=== PATIENT | female | born 1980 | race American Indian/Alaskan Native ===

== ENCOUNTER 2021-03-13 17:10 | Emergency (ER) | payer MEDICAID ==
--- NOTE | 2021-03-13 18:24 | Emergency Department Report ---
ED Back Pain/Injury HPI - General Chief Complaint: Back Pain/Injury Stated Complaint: LOWER BACK PAIN Time Seen by Provider: 03/13/21 18:09 Source: patient Limitations: No Limitations - History of Present Illness Initial Comments: Patient is a 40-year-old female presents emergency room with complaints of right lower back pain that began a few days ago. She states movement worsens her pain. She states that she has been having some nausea. She denies any fever, vomiting, diarrhea, urinary frequency, dysuria, dark urine, odor of the urine, numbness, weakness, radiation of the pain, bowel or bladder incontinence. She denies any steroid use, history of cancer, IV drug use. Patient denies any past medical history. She denies any medications allergies. She states that she believes her last menstrual cycle was in January, she states that she is not sure if she is . - Related Data Previous Rx's Medication Instructions Recorded Last Taken Type Menthol/Camphor [Roundup [place] 1 applicatio TP BID #18 g 03/13/21 Unknown Rx Ointment] Naproxen 375 mg PO BID PRN #20 tab 03/13/21 Unknown Rx methOCARBAMOL [Robaxin TAB] 500 mg PO BID PRN #20 tab 03/13/21 Unknown Rx Allergies Allergy/AdvReac Type Severity Reaction Status Date / Time No Known Allergies Allergy Verified 03/13/21 19:55 ED Review of Systems ROS: Stated complaint: LOWER BACK PAIN Other details as noted in HPI Comment: All other systems reviewed and negative ED Past Medical Hx - Past Medical History Previous Medical History?: No - Surgical History Past Surgical History?: No - Medications Home Medications: Home Medications Medication Instructions Recorded Confirmed Last Taken Type Menthol/Camphor [Roundup [place] 1 applicatio TP BID #18 g 03/13/21 Unknown Rx Ointment] Naproxen 375 mg PO BID PRN #20 tab 03/13/21 Unknown Rx methOCARBAMOL [Robaxin TAB] 500 mg PO BID PRN #20 tab 03/13/21 Unknown Rx ED Physical Exam - General Limitations: No Limitations General appearance: alert, in no apparent distress - Head Head exam: Present: atraumatic, normocephalic - Eye Eye exam: Present: normal appearance - ENT ENT exam: Present: mucous membranes moist - Neck Neck exam: Present: normal inspection, full ROM. Absent: tenderness, meningismus - Respiratory Respiratory exam: Present: normal lung sounds bilaterally. Absent: respiratory distress, wheezes, rales, rhonchi, stridor, chest wall tenderness, accessory muscle use, decreased breath sounds, prolonged expiratory - Cardiovascular Cardiovascular Exam: Present: regular rate, normal rhythm, normal heart sounds. Absent: systolic murmur, diastolic murmur, rubs, gallop - Back Exam Back exam: Present: normal inspection, full ROM, paraspinal tenderness (right sided lumbar paraspinal ttp, no midline c-spine, t-spine or l-spine ttp, no step offs, no deformities). Absent: vertebral tenderness - Neurological Exam Neurological exam: Present: alert, oriented X3, CN II-XII intact, normal gait. Absent: motor sensory deficit - Psychiatric Psychiatric exam: Present: normal affect, normal mood - Skin Skin exam: Present: warm, dry, intact ED Course Vital Signs 03/13/21 17:14 Temperature 98 F Pulse Rate 72 Respiratory 16 Rate Blood Pressure 130/74 [Left] O2 Sat by Pulse 100 Oximetry ED Medical Decision Making - Medical Decision Making Patient is a 40-year-old female presents emergency room with complaints of right lower back pain that began a few days ago. She states movement worsens her pain. She states that she has been having some nausea. She denies any fever, vomiting, diarrhea, urinary frequency, dysuria, dark urine, odor of the urine, numbness, weakness, radiation of the pain, bowel or bladder incontinence. She denies any steroid use, history of cancer, IV drug use. Patient denies any past medical history. She denies any medications allergies. She states that she believes her last menstrual cycle was in January, she states that she is not sure if she is . VSS. on exam: right sided lumbar paraspinal ttp, no midline c-spine, t-spine or l-spine ttp, no step offs, no deformities, no focal neuro deficits, pt is ambulatory. UA is normal. urine is negative. pt has no red flag warning signs, no trauma, no unexplained weight loss, no neuro deficits, no fever, no IV drug use, no steroid use, no history of cancer, age is not greater than 50. pt given IM toradol. discussed findings with pt. given prescription for medications. advised pt Please take medication as prescribed. May use ice pack, heating pad, rest, epsom salt bath. Do not use heat or ice while using Roundup balm. Follow-up with your primary care doctor. Follow-up with orthopedic doctor. Return to emergency room for any new or worsening symptoms. Critical care attestation.: If time is entered above; I have spent that time in minutes in the direct care of this critically ill patient, excluding procedure time. ED Disposition Clinical Impression: Low back pain Qualifiers: Chronicity: acute Back pain laterality: right Sciatica presence: without sciatica Qualified Code(s): M54.50 - Low back pain, unspecified Disposition: HOME / SELF CARE / HOMELESS Is pt being admited?: No Does the pt Need Aspirin: No Condition: Stable Instructions: Muscle Strain, [id number] Additional Instructions: Please take medication as prescribed. May use ice pack, heating pad, rest, epsom salt bath. Do not use heat or ice while using Roundup balm. Follow-up with your primary care doctor. Follow-up with orthopedic doctor. Return to emergency room for any new or worsening symptoms. Prescriptions: Naproxen 375 mg PO BID PRN #20 tab PRN Reason: pain methOCARBAMOL [Robaxin TAB] 500 mg PO BID PRN #20 tab PRN Reason: muscle spasm/pain Menthol/Camphor [Roundup [place] Ointment] 1 applicatio TP BID #18 g Referrals: PRIMARY CARE, [Primary Care Provider] - 3-5 Days [facility] [Provider Group] - 3-5 Days MIKE WHITEHEAD MD [Staff Physician] - 3-5 Days (orthopedic ) LOCO QUIÑONEZ MD [Staff Physician] - 3-5 Days [facility] [Provider Group] - 3-5 Days Time of Disposition: 19:49 Print Language: GREEK
[2021-03-13 19:16] LABS: Bilirubin,Urine NEG (Negative); Blood,Urine NEG (Negative); Color,Urine Yellow (Yellow); Mucus,Urine FEW /HPF; Protein,Urine <15 mg/dL mg/dL (Negative); Urobilinogen,Urine < 2.0 mg/dL (<2.0)
[2021-03-13 19:24] LABS: HCG Qualitative,Urine Negative (Negative)
[2021-03-13] MEDS ORDERED: KETOROLAC 60 MG/2 ML INJ IM ONE (20:00)
[2021-03-13] MEDS ORDERED: CYCLOBENZAPRINE 10 MG TAB PO ONE (20:00)
[2021-03-13 20:20] VITALS: BP 115/67
== END 2021-03-13 20:23 | disposition home or self-care (01) ==
LOC: ED 17:10
DX: M54.50 Low back pain, unspecified (principal)
CPT/HCPCS: 81001; 81025; 96372; 99283; J1885